=== PATIENT | female | born 1975 | race Caucasian/White ===

== ENCOUNTER 2023-09-06 01:35 | Emergency (ER) | payer BC, SELFPAY ==
[2023-09-06 01:40] VITALS: BP 109/75
[2023-09-06 02:07] LABS: % Basophils 0.6 % (0-2); % Eosinophils 1.1 % (0-6); % Immature Granulocytes 0.4 % (0-0.5); % Lymphocytes 12.8 % (20.5-51.1); % Monocytes 8.5 % (1.7-9.3); % Neutrophils 76.6 % (42.2-75.2); Absolute Basophils 0.1 10^3/uL (0-0.2); Absolute Eosinophils 0.1 10^3/uL (0-0.7); Absolute Lymphocytes 1.1 10^3/uL (1.2-3.4); Absolute Monocytes 0.7 10^3/uL (0.1-0.6); Absolute Neutrophils 6.3 10^3/uL (1.4-6.5); Hematocrit 36.6 % (37.0-47.0); Hemoglobin 12.8 g/dL (12.0-16.0); Mean Corpuscular Hgb 32.8 pg (27.0-31.0); Mean Corpuscular Volume 93.8 fL (81.0-99.0); Mean Platelet Volume 8.9 fL (7.4-10.4); Nucleated Red Blood Cells % 0 %; Platelet Count 324 10^3/uL (130-400); Red Cell Dist. Width 13.7 % (11.5-14.5); White Blood Cell Count 8.3 10^3/uL (4.8-10.8)
[2023-09-06 02:08] LABS: Urine Albumin Trace (Neg - Trace); Urine Bilirubin 2+ (Negative); Urine Character Clear (Clear); Urine Color Yellow; Urine Glucose Negative (Negative); Urine Ketone 2+ (Negative); Urine Leukocyte 1+ (Negative); Urine Nitrite Negative (Negative); Urine Occult Blood 2+ (Negative); Urine Urobilinogen 1+ (Neg - 1+)
[2023-09-06 02:24] LABS: Urine Mucus Moderate
[2023-09-06 02:28] LABS: Urine Bacteria Moderate (Negative); Urine Red Blood Cell 21-25 /HPF (0-2); Urine Squamous Cell >30 /LPF (Few)
[2023-09-06 02:36] LABS: ALT (SGPT) 16 U/L (0-35); AST (SGOT) 23 U/L (14-36); Albumin 2.9 g/dl (3.5-5.0); Alkaline Phosphatase 99 U/L (38-126); Blood Urea Nitrogen 11 mg/dl (7-17); Calcium 8.8 mg/dl (8.4-10.2); Carbon Dioxide 31 mmol/L (22-30); Chloride 99 mmol/L (98-107); Glucose 99 mg/dl (70-99); Sodium 135 mmol/L (135-145); Total Bilirubin 0.6 mg/dl (0.2-1.3); Total Protein 5.7 g/dl (6.3-8.2); eGFR > 60.00
[2023-09-06 05:27] VITALS: BMI 22.3
--- NOTE | 2023-09-06 06:01 | ED.GENMED ---
History of Present Illness
General
Chief Complaint: Flank Pain
Time Seen by Provider: 09/06/23 06:00
Travel History
Have you had any contact with someone who has COVID-19?: No
Do you have any symptoms of coronavirus? Fever > 100 degrees, chills, cough, shortness of breath, sore throat, loss of taste or smell, muscle aches, or headache?: No
History of Present Illness
History of Present Illness:
HPI: Patient presents with left flank pain associate with nausea and vomiting. This started approximately 30 hours ago. She feels that she cannot get comfortable. She has some discomfort in the left flank that radiates to the left abdomen. She
has been taking Motrin without relief.
EXAM:
GENERAL: Well appearing but she appears somewhat on-call
HEENT: Moist oral mucosa
CARDIOVASCULAR: No murmurs, normal heart rate, regular rhythm, No chest wall tenderness
PULMONARY: No respiratory distress, breath sounds are clear and equal
ABDOMEN: Soft with no peritoneal signs, mild left CVA tenderness without abdominal tenderness
NEUROLOGIC: Excellent strength all extremities, no coordination deficits
PSYCHIATRIC: Appropriate mental status, normal insight and judgement
EXTREMITIES: Nontender, no edema, moves all extremities equally
SKIN: No rash, no lesions
TIME OF INITIAL ENCOUNTER: 6:05 AM
NUMBER AND COMPLEXITY OF PROBLEMS ADDRESSED AT THE ENCOUNTER
� Chronic conditions affecting care: Crohn's disease
� Acute Exacerbation and/or Progression of Chronic Illness: This is an acute problem
� Differential Diagnosis includes: Musculoskeletal flank pain, UTI, pyelonephritis, ureteral stones
AMOUNT AND/OR COMPLEXITY OF DATA TO BE REVIEWED AND ANALYZED
� I performed an independent evaluation of and my interpretation is:
EKG:
CT: CT imaging personally reviewed. There is inflammatory changes of the left adrenal with concern for hemorrhage
X-rays:
Laboratory Studies: White count and hemoglobin are normal, renal function is normal, blood and ketones are noted on urinalysis without definite evidence of infection
Other:
� Review of other/old records:
� Clinical information was obtained by an independent historian: None needed
� Prescriptions/Medications Considered but not given:
� Further testing considered but not performed:
RISK OF COMPLICATIONS AND/OR MORBIDITY OR MORTALITY OF PATIENT MANAGEMENT
� Social determinants of health affecting care: Lives at home
� Discussion with other providers: See below
� Escalation of care including admission/observation vs risk of discharge considered: Will try fluids and Toradol as well as Zofran. Will CT for further evaluation. CT imaging suggest abnormality at the left adrenal. I spoke
to Dr. Wally shay who recommends discussion with general surgery. Dr. Bowers was notified and recommend further imaging. I spoke to Dr. Ricks who recommends CTA for further evaluation. I reassessed the patient at around 12 PM and she does feel
somewhat improved after Toradol was given. We also tried Tylenol. She prefers outpatient management citing that she needs to take care of her son. CTA shows no sign of active bleeding. Unclear etiology of symptoms but there could be some adrenal
pathology�she is to get an MRI as an outpatient.
Phy Exam
Physical Exam
Physical Exam:
See HPI
Course
Orders/Labs/Results
Orders:
Orders
09/06/23 02:01
Complete Blood Count/With Diff Urgent
Comprehensive Metabolic Panel Urgent
Urinalysis Reflex To Culture Urgent
Date Specimen was Collected: 09/06/23
Time Specimen was Collected: 01:47
Urine Microscopic Reflex Cult Urgent
Urine Culture Urgent
SANCHEZ Source: U
Specimen Description:
Date Specimen was Collected: 09/06/23
Time Specimen was Collected: 01:47
09/06/23 06:10
CT Abd/pel Without Iv Or Oral Urgent
Comment:
Reason For Exam: L flank pain
0.9% Sodium Chloride 1000 ml [Nss] 1,000 ml IV BOLUS
Ketorolac [Toradol] 15 mg IV NOW STA
Ondansetron Injectable [Zofran] 4 mg IV NOW STA
09/06/23 10:02
CT Abd/pelvis Angio W/wo Iv Urgent
Comment:
Reason For Exam: eval L adrenal abnormality
09/06/23 11:11
Acetaminophen [Tylenol] 1,000 mg PO NOW STA
Abnormal Lab Results
09/06/23
02:01
RBC 3.90 L 10^6/uL
(4.20-5.40)
Hct 36.6 L %
(37.0-47.0)
MCH 32.8 H pg
(27.0-31.0)
Absolute Lymphs (auto) 1.1 L 10^3/uL
(1.2-3.4)
Absolute Monos (auto) 0.7 H 10^3/uL
(0.1-0.6)
Neutrophils % 76.6 H %
(42.2-75.2)
Lymphocytes % 12.8 L %
(20.5-51.1)
Potassium 3.0 L mmol/L
(3.5-5.1)
Carbon Dioxide 31 H mmol/L
(22-30)
Creatinine 0.5 L mg/dL
(0.6-1.0)
Total Protein 5.7 L g/dl
(6.3-8.2)
Albumin 2.9 L g/dl
(3.5-5.0)
Urine Ketones 2+ A
(Negative)
Ur Occult Blood Reflex 2+ A
(Negative)
Urine Bilirubin 2+ A
(Negative)
Leukocyte Esterase Rfl 1+ A
(Negative)
Urine RBC 21-25 A /HPF
(0-2)
Urine Bacteria (Reflex) Moderate A
(Negative)
09/06/23 02:01
09/06/23 02:01
Vital Signs
Initial and Last Documented VS:
Initial Vital Signs
Temp Pulse BP Pulse Ox
97.7 F 86 109/75 98
09/06/23 01:40 09/06/23 01:40 09/06/23 01:40 09/06/23 01:40
Last Documented Vital Signs
Temp Pulse Resp BP Pulse Ox
97.7 F 64 18 101/57 99
09/06/23 01:40 09/06/23 11:45 09/06/23 11:45 09/06/23 11:45 09/06/23 11:45
*Critical Care Note
Total Time (30-74mins, 75-104mins- exclusive of procedures): Not Applicable
ED Attending Note
-
Portions of this chart may have been created with voice recognition software.� Occasional wrong word or��sound alike� substitutions may have occurred due to the inherent limitations of voice recognition software.
Discharge Plan
Departure
Patient Disposition: Home (Routine Discharge)
Date of Disposition: 09/06/23
Time of Disposition: 11:26
Patient with high blood pressure during this ER visit?: No
Discharge Problem:
Acute flank pain
Instructions: Flank Pain (DC)
Prescriptions:
New
cephalexin 500 mg capsule
500 mg PO TID Qty: 21 0RF
oxycodone-acetaminophen [Percocet] 5-325 mg tablet
1 - 2 tab PO Q6HPRN PRN (Reason: pain) Qty: 14 0RF
No Action
colchicine 0.6 mg tablet
0.6 mg PO BID 30 Days Qty: 60 0RF
ibuprofen 600 mg tablet
600 mg PO Q8H 30 Days Qty: 90 0RF
Referrals:
Jerome Lo MD [Active] - Follow up in 2-3 days
Daniel Bowers MD [Active] - Follow up in 2-3 days
UNKNOWN - PT DOES,NOT KNOW [Family Provider] -
Activity Restrictions/Additional Instructions:
The CTA with contrast showed inflammation adjacent to the left adrenal gland consistent 'with nonspecific left adrenal inflammation'. I spoke to urologist earlier who suggested we try antibiotics�I am sending a prescription for an antibiotic to
your pharmacy. The CT also showed 'small focus of enhancement within the left adrenal gland, heterogeneous enhancement pattern of the left adrenal gland is nonspecific, follow-up adrenal protocol MRI is recommended to exclude left adrenal mass,
there was also significant enteritis involving the distal jejunum and entire ileum consistent with enteritis�this may be related to your history of Crohn's. Regarding the MRI�I recommend that you follow-up with your primary care doctor. He should
be able to order the MRI. Since I did speak to a urologist, Dr. Lo. I also spoke to a general surgeon�Dr. Bowers�I have given you contact information for both.
Interventions
Interventions:
*Risk Screen - Suicide Last Done: 09/06/23 05:26
*General Assessment Last Done: 09/06/23 05:26
*Neglect/Abuse Screening Last Done: 09/06/23 05:26
ED- Fall Risk Assessment Last Done: 09/06/23 05:26
AL-Pzrrxl-Vyucymwsvg Assessment Last Done: 09/06/23 04:55
ED-Female Genitourinary Assessment Last Done: 09/06/23 04:55
Discharge Date and Time
Print Language: MACEDONIAN
[2023-09-06] MEDS: NSS 1000 IV (06:15)
[2023-09-06] MEDS: TORADOL 15 MG IV (06:15)
[2023-09-06] MEDS: ZOFRAN 4 MG IV (06:17)
[2023-09-06 09:13] VITALS: BP 114/54
[2023-09-06 11:45] VITALS: BP 101/57
== END 2023-09-06 11:50 | disposition home or self-care (01) ==
LOC: EMR 01:35
PROVIDERS: Student in an Organized Health Care Education/Training Program; EMERGENCY PHYSICIAN Emergency Medicine
DX: R10.9 Unspecified abdominal pain (principal); R11.2 Nausea with vomiting, unspecified; K50.90 Crohn's disease, unspecified, without complications
CPT/HCPCS: 99285; 74174; 74176; 80053; 81003; 81015; 85025; 87086; Q9967